=== PATIENT | male | born 1980 | race Caucasian/White ===

== ENCOUNTER 2018-10-09 11:10 | Emergency (ER) | payer OTHER, SELFPAY ==
[2018-10-09 11:18] VITALS: BP 155/90; PULSE 65; RESP 20; TEMP 36.9; O2SAT 97; BMI 26.4
--- NOTE | 2018-10-09 12:11 | ED_ITS ---
HPI - Dental/Oral <LISA Reaves - Last Filed: 10/09/18 13:44> General Chief complaint: Dental/Oral Stated complaint: states dental infection Time Seen by Provider: 10/09/18 12:02 Source: patient and family Mode of arrival: ambulatory Limitations: no limitations History of Present Illness HPI Narrative: Patient is a 38-year-old male every day smoker who presents with a significant other complaining of a dental infection for several months. He states that he has an infection and his left lower 2nd to last molar. He has a dentist appointment for the scheduled for Wednesday. However reveals his infection is getting worse so he comes in today requesting antibiotics. He denies any fever, nausea, vomiting, diarrhea. He has taken ibuprofen for the pain. He states that this has not been helping. He does work as a shuttle bus driver. Related Data Previous Rx's Medication Instructions Recorded clindamycin HCl 300 mg PO QID #40 cap 10/09/18 naproxen 500 mg PO BID PRN #20 tab 10/09/18 Allergies Allergy/AdvReac Type Severity Reaction Status Date / Time aspirin Allergy Unknown unknown Verified 10/09/18 12:11 Penicillins Allergy Unknown unknown Verified 10/09/18 12:11 Review of Systems <LISA Reaves - Last Filed: 10/09/18 13:44> Review of Systems GENERAL: Denies chills, fatigue, malaise, fever, sweats. HEENT: See HPI RESPIRATORY: Denies dyspnea, cough, wheezing, hemoptysis, sputum. CARDIOVASCULAR: Denies chest pain, palpitations, orthopnea, edema, GASTROINTESTINAL: Denies nausea, vomiting, abdominal pain, diarrhea, constipation, melena. : Denies dysuria, frequency, incontinence, hematuria, urinary retention. MUSCULOSKELETAL: denies weakness, joint pain, or bony pain SKIN: Denies rash, skin lesions, or other NEUROLOGIC: Denies weakness, headache, numbness, change in speech, confusion, seizures, incoordination. PSYCHIATRIC: No concerning psychosocial issues. 12 point review of systems is negative except for those stated above Exam <LISA Reaves - Last Filed: 10/09/18 13:44> Narrative Exam Narrative: GENERAL: This is a well-nourished, well-developed patient, no acute distress HEAD: Atraumatic. Normocephalic. No temporal or scalp tenderness. EYES: Pupils equal round and reactive. Extraocular motions intact. No scleral icterus. No injection or drainage. ENT: 2nd last left lower molar is broken. Surrounding erythema tenderness to palpation, swelling to palpation. No overlying erythema jaw line. NECK: Trachea midline. No JVD or lymphadenopathy. Supple, nontender, no meningeal signs. CARDIOVASCULAR: Regular rate and rhythm without murmurs, gallops, or rubs. RESPIRATORY: Clear to auscultation. Breath sounds equal bilaterally. No wheezes , rales, or rhonchi. GASTROINTESTINAL: Abdomen soft, non-tender, nondistended. No hepato-splenomegaly , or palpable masses. No guarding. EXTREMITIES: No clubbing, cyanosis, or edema. No joint tenderness, effusion, or edema noted. BACK: Nontender without deformity or crepitance. No flank tenderness. NEURO: AOx3. SKIN: No rash or erythema. Initial Vital Signs Initial Vital Signs: Vital Signs Temperature 98.5 F 10/09/18 11:18 Pulse Rate 65 10/09/18 11:18 Respiratory Rate 20 10/09/18 11:18 Blood Pressure 155/90 H 10/09/18 11:18 Pulse Oximetry 97 10/09/18 11:18 <Rhea Gomez MD - Last Filed: 10/09/18 18:53> Initial Vital Signs Initial Vital Signs: Vital Signs Temperature 98.5 F 10/09/18 11:18 Pulse Rate 65 10/09/18 11:18 Respiratory Rate 20 10/09/18 11:18 Blood Pressure 155/90 H 10/09/18 11:18 Pulse Oximetry 97 10/09/18 11:18 Course <ALDO Reaves-DAVID - Last Filed: 10/09/18 13:44> Orders Ordered: Discontinued Medications Ketorolac Tromethamine (Toradol) 60 mg IM NOW ONE Stop: 10/09/18 12:13 Last Admin: 10/09/18 12:27 Dose: 60 mg Vital Signs - 8 hr 10/09/18 11:18 10/09/18 13:00 Temperature 98.5 F Pulse Rate 65 58 L Respiratory Rate 20 16 Blood Pressure 155/90 H 125/77 Pulse Oximetry 97 99 <Rhea Gomez MD - Last Filed: 10/09/18 18:53> Orders Ordered: Discontinued Medications Ketorolac Tromethamine (Toradol) 60 mg IM NOW ONE Stop: 10/09/18 12:13 Last Admin: 10/09/18 12:27 Dose: 60 mg Vital Signs - 8 hr 10/09/18 11:18 10/09/18 13:00 Temperature 98.5 F Pulse Rate 65 58 L Respiratory Rate 20 16 Blood Pressure 155/90 H 125/77 Pulse Oximetry 97 99 MDM - Dental/Oral <POLLO Reaves - Last Filed: 10/09/18 13:44> MDM Narrative Medical decision making narrative: Patient is a 38-year-old male current everyday smoker who presents with a chief complaint of dental infection. His exam correlates. He already has follow-up scheduled. However will start him on antibiotics at this point time. He is allergic to penicillins, so I will treat him with clindamycin. The patient does not want any narcotic pain relievers at this point time given that he works as a shuttle bus driver. I discussed at length follow up with primary care, which she is trying to arrange as well as continuation of his dental appointment on Wednesday. Discussed at length return precautions. Patient has no questions or concerns upon discharge. Discharge Plan Departure Patient Disposition: Home Clinical Impression: Dental infection Discharge Date/Time: 10/09/18 13:01 Interventions: ED Discharge Assessment Last Done: 10/09/18 13:00 Instructions: Tooth Abscess, DI for Dental Pain Activity Restrictions/Additional Instructions: I am starting you on an antibiotic for dental infection. This antibiotic is clindamycin. Please take a probiotic or yogurt with it to help prevent GI side effects. Per our discussion, we discussed avoiding narcotics given her job so I gave her prescription for naproxen. Please do not combine this with ibuprofen. You can start taking the naproxen tonight. Please follow-up with your dentist as scheduled. Please monitor for fever and worsening or no improvement. Please be re-evaluated if concerned. The antibiotics will need several doses in order to start being effective. Prescriptions: New clindamycin HCl 300 mg capsule 300 mg PO QID Qty: 40 RF: 0 naproxen 500 mg tablet 500 mg PO BID PRN (Reason: pain) Qty: 20 RF: 0
[2018-10-09] MEDS: KETOROLAC 60 MG/2 ML VIAL IM (12:27)
[2018-10-09 13:00] VITALS: BP 125/77; PULSE 58; RESP 16; O2SAT 99
== END 2018-10-09 13:01 | disposition home or self-care (01) ==
PROVIDERS: Emergency Provider Nurse Practitioner Family
DX: K04.7 Periapical abscess without sinus (principal)
CPT/HCPCS: 99282; 99283; J1885

== ENCOUNTER → 2022-12-25 07:19 | Outpatient (CLI) | payer OTHER, SELFPAY ==
--- NOTE | 2022-12-25 22:10 | DI.NM.S_ITS ---
DATE OF SERVICE: 12/25/2022 PROCEDURE PERFORMED: Exercise treadmill stress test without imaging. ORDERING PROVIDER: Liliane Bell PA-C. INDICATIONS: The patient is a 42-year-old hypertensive male with a history of fatigue and atypical chest discomfort. FINDINGS: 1. The patient was able to exercise for 9 minutes and 27 seconds on a standard Yehuda protocol suggesting mild to moderately reduced exercise capacity with an ANASTACIA of +18%, achieving 10.2 METS. 2. He had a normal heart rate and blood pressure response to exercise, achieving a maximum heart rate of 168 bpm (95% of his predicted maximum). 3. He had no chest discomfort or anginal symptoms. 4. The resting ECG showed sinus rhythm with normal ST segments. There were no significant ST-segment shifts or arrhythmias with stress. IMPRESSION: 1. Normal exercise treadmill stress test for ischemia. 2. Mild to moderately reduced exercise capacity without angina or arrhythmias. TomaszrezaDalton singh - ZULY/gretta/amy doc#: [id number]/job#: [id number] dd: 12/25/2022 12:58:00 dt: 12/25/2022 21:55:00 DICTATING MD/COPIES TO: Con Shaw MD; Liliane Bell PA-C COPIES MNE: ARPIT; ; Liliane Bell PA-C
== END ==
PROVIDERS: PCP Physician Assistant; Referring Provider Physician Assistant; Visit Provider Physician Assistant
DX: R07.89 Other chest pain (principal)
CPT/HCPCS: 93017